=== PATIENT | male | born 1975 | race Caucasian/White ===

== ENCOUNTER 2016-11-13 16:53 | Emergency (ER) | payer SELFPAY ==
[~2016-11-13] VITALS: Ht 175.3 cm; Wt 79.0 kg
[~2016-11-13 16:53] MED LIST: HYDR2TAB PO; KLON2TAB PO; LISI10TA PO; METH5SOL3 PO
[2016-11-13 16:57] VITALS: BP 138/74; PULSE 84; RESP 18; TEMP 98.2; O2SAT 98
[2016-11-13] MEDS ORDERED: METH10TA PO (17:41)
[2016-11-13] MEDS ORDERED: LISI40TA PO (17:41)
[2016-11-13] MEDS ORDERED: HYDR8TAB PO (17:41)
[2016-11-13] MEDS ORDERED: DOXY100C PO (18:16)
[2016-11-13] MEDS ORDERED: BACT800T5 PO (18:16)
[2016-11-13] MEDS ORDERED: IBUP800T23 PO (18:16)
--- NOTE | 2016-11-13 18:17 | PD ---
HPI Chief Complaint: Skin Problem Time Seen by Provider: 18:12 Travel History International Travel<30 days: No Contact w/Intl Traveler<30days: No Traveled to known affect area: No History of Present Illness HPI 41-year-old male with history of axillary abscesses, presents to the emergency Department with complaint of bilateral axillary abscesses with worsening over the past few days. Denies fever, chills, nausea, vomiting. Has tried warm compresses to get them to open up with no success. No known relieving factors. Allergies to codeine, naproxen, penicillin. No other modifying factors or associated signs and symptoms. PFSH Past Medical History Arthritis: Yes Blood Disorders: No Anxiety: Yes Depression: Yes Heart Rhythm Problems: No Cancer: No Cardiac Catheterization: No Cardiovascular Problems: Yes High Cholesterol: No Chemotherapy: No Chest Pain: Yes Congestive Heart Failure: No Diabetes: No Diminished Hearing: Yes (LT EAR) Endocrine: No Gastrointestinal Disorders: No Genitourinary: No Headaches: Yes Hypertension: Yes (NON-COMPLIANT) Immune Disorder: No Musculoskeletal: Yes Neurologic: Yes Psychiatric: Yes Reproductive: No Respiratory: No Myocardial Infarction: Yes (2006 FROM COCAINE ABUSE) Radiation Therapy: No Tetanus Vaccination: < 5 Years Influenza Vaccination: No Past Surgical History Abdominal Surgery: Yes (APPENDECTOMY) AICD: No Appendectomy: Yes Arteriovenous Shunt: No Cardiac Surgery: No Coronary Artery Bypass Graft: No Ear Surgery: No Endocrine Surgery: No Eye Surgery: No Genitourinary Surgery: No Gynecologic Surgery: No Insulin Pump: No Joint Replacement: No Neurologic Surgery: No Oral Surgery: No Pacemaker: No Thoracic Surgery: No Other Surgery: Yes Family History Family Myocardial Infarction: No Social History Alcohol Use: No Tobacco Use: Yes (1PPD) Substance Use: Yes Allergies-Medications (Allergen,Severity, Reaction): Coded Allergies: Codeine (Verified Allergy, Severe, 11/13/16) Naproxen (Verified Allergy, Severe, Nausea/Vomiting, 11/13/16) Penicillin (Verified Allergy, Severe, HIVES, 11/13/16) Reported Meds & Prescriptions Reported Meds & Active Scripts Active Ibuprofen 800 Mg Tab 800 Mg PO Q6HR PRN Bactrim DS (Sulfamethoxazole-Trimethoprim) 800-160 Mg Tab 1 Tab PO BID 10 Days Doxycycline Hyclate 100 Mg Cap 100 Mg PO BID 10 Days Reported Hydromorphone (Hydromorphone HCl) 8 Mg Tab 8 Mg PO QID PRN Methadone (Methadone HCl) 10 Mg Tab 10 Mg PO BID Lisinopril 40 Mg Tab 40 Mg PO DAILY Review of Systems Except as stated in HPI: all other systems reviewed are Neg Physical Exam Narrative GENERAL: Well-nourished, well-developed patient, in no acute distress; afebrile , nontoxic-appearing SKIN: There is an indurated area in the left axilla which measures about 3 cm in diameter. It is fluctuant but there is no pointing or drainage. There is a zone of inflammation around it but no lymphangitis. There is an indurated area in the Right axilla which measures about 3 cm in diameter. It is fluctuant but there is no pointing or drainage. There is a zone of inflammation around it but no lymphangitis. HEAD: Atraumatic. Normocephalic. EYES: Pupils equal and round. No scleral icterus. No injection or drainage. ENT: Mucosa pink and moist. Airway patent. NECK: Trachea midline. CARDIOVASCULAR: Regular rate. RESPIRATORY: No accessory muscle use. GASTROINTESTINAL: Flat. MUSCULOSKELETAL: No obvious deformities. No clubbing. No cyanosis. No edema. NEUROLOGICAL: Awake and alert. Oriented 3. No obvious cranial nerve deficits. Motor grossly within normal limits. Normal speech. PSYCHIATRIC: Appropriate mood and affect; insight and judgment normal. Data Data Last Documented VS Vital Signs Date Time Temp Pulse Resp B/P Pulse Ox O2 Delivery O2 Flow Rate FiO2 11/13/16 16:57 98.2 84 18 138/74 98 Orders Wound Culture And Gram Stain (11/13/16 18:17) Lidocai-Epi 1%-1:100,000 Inj (Xylocaine- (11/13/16 18:45) MDM Medical Decision Making Medical Screen Exam Complete: Yes Emergency Medical Condition: Yes Medical Record Reviewed: Yes Differential Diagnosis Abscess, folliculitis, cellulitis Narrative Course 41-year-old male physical exam consistent with bilateral axilla abscesses. See Rosmery Mcdonough PA-C note for abscess incision and drainage. Wound culture pending. Patient is up-to-date on tetanus vaccination. She was afebrile nontoxic appearing. He denies fever, chills, nausea, vomiting. Doxycycline, Bactrim, ibuprofen prescribed for home. Patient is medically cleared and stable for discharge. Discussed reasons to return to the emergency department. Instructed patient to follow up with primary care provider. Patient agrees with treatment plan. The patients vital signs are stable and the patient is stable for outpatient follow-up and treatment. Patient discharged home, stable and in no acute distress. Diagnosis Primary Impression: Abscesses of both axillae Referrals: Primary Care Physician Patient Instructions: Abscess (ED), Abscess Follow-up (ED), Abscess Incision and Drainage (ED), General Instructions Departure Forms: Tests/Procedures, Work Release Enter return to work date: Nov 15, 2016 Additional Instructions: Complete full course of antibiotics Warm compresses to the affected area Keep area clean and dry Ibuprofen or Tylenol as instructed and as needed for pain and inflammation Follow-up with primary care provider Return to emergency department immediately with worsening of symptoms Med/Other Pt SpecificInfo: Prescription(s) given Scripts Ibuprofen 800 Mg [id number] Mg PO Q6HR PRN (PAIN) #30 TAB Ref 0 Prov:Elsy Loving 11/13/16 Sulfamethoxazole-Trimethoprim (Bactrim DS)800-160 Mg Tab1 Tab PO BID 10 Days Ref 0 Prov:Elsy Loving 11/13/16 Doxycycline Hyclate 100 Mg [id number] Mg PO BID 10 Days Ref 0 Prov:Elsy Loving 11/13/16 Disposition: 01 DISCHARGE HOME Condition: Stable Elsy Loving Nov 13, 2016 18:17
--- NOTE | 2016-11-13 18:44 | PD ---
HPI Chief Complaint: Skin Problem Time Seen by Provider: 18:41 Travel History International Travel<30 days: No Contact w/Intl Traveler<30days: No Traveled to known affect area: No History of Present Illness HPI 41-year-old male with PMH of HTN, distant [place] secondary to substance abuse presents to the ED for evaluation of 3 day history of reddened, swollen areas under bilateral axilla. Patient states he has never had a similar problem. He denies fever, chills, numbness, tingling, weakness or limitations to range of motion of bilateral upper extremities. No treatment attempt at home. He takes no daily medications. Endorses allergies to several medications. PFSH Past Medical History Arthritis: Yes Blood Disorders: No Anxiety: Yes Depression: Yes Heart Rhythm Problems: No Cancer: No Cardiac Catheterization: No Cardiovascular Problems: Yes High Cholesterol: No Chemotherapy: No Chest Pain: Yes Congestive Heart Failure: No Diabetes: No Diminished Hearing: Yes (LT EAR) Endocrine: No Gastrointestinal Disorders: No Genitourinary: No Headaches: Yes Hypertension: Yes (NON-COMPLIANT) Immune Disorder: No Musculoskeletal: Yes Neurologic: Yes Psychiatric: Yes Reproductive: No Respiratory: No Myocardial Infarction: Yes (2006 FROM COCAINE ABUSE) Radiation Therapy: No Tetanus Vaccination: < 5 Years Influenza Vaccination: No Past Surgical History Abdominal Surgery: Yes (APPENDECTOMY) AICD: No Appendectomy: Yes Arteriovenous Shunt: No Cardiac Surgery: No Coronary Artery Bypass Graft: No Ear Surgery: No Endocrine Surgery: No Eye Surgery: No Genitourinary Surgery: No Gynecologic Surgery: No Insulin Pump: No Joint Replacement: No Neurologic Surgery: No Oral Surgery: No Pacemaker: No Thoracic Surgery: No Other Surgery: Yes Family History Family Myocardial Infarction: No Social History Alcohol Use: No Tobacco Use: Yes (1PPD) Substance Use: Yes Allergies-Medications (Allergen,Severity, Reaction): Coded Allergies: Codeine (Verified Allergy, Severe, 11/13/16) Naproxen (Verified Allergy, Severe, Nausea/Vomiting, 11/13/16) Penicillin (Verified Allergy, Severe, HIVES, 11/13/16) Reported Meds & Prescriptions Reported Meds & Active Scripts Active Ibuprofen 800 Mg Tab 800 Mg PO Q6HR PRN Bactrim DS (Sulfamethoxazole-Trimethoprim) 800-160 Mg Tab 1 Tab PO BID 10 Days Doxycycline Hyclate 100 Mg Cap 100 Mg PO BID 10 Days Reported Hydromorphone (Hydromorphone HCl) 8 Mg Tab 8 Mg PO QID PRN Methadone (Methadone HCl) 10 Mg Tab 10 Mg PO BID Lisinopril 40 Mg Tab 40 Mg PO DAILY Review of Systems Except as stated in HPI: all other systems reviewed are Neg Physical Exam Narrative GENERAL: Well-nourished, well-developed white male in no acute distress. SKIN: Warm and dry. SKIN: There is an indurated area in the left axilla which measures about 4 cm in diameter. It is fluctuant but there is no pointing or drainage. There is a zone of inflammation around it but no lymphangitis. SKIN: There is an indurated area in the right axilla which measures about 3 cm in diameter. It is fluctuant but there is no pointing or drainage. There is a zone of inflammation around it but no lymphangitis. SKIN: There is an indurated area in the left anterior medial knee which measures about 3 cm in diameter. There is pointing and purulent drainage. There is a zone of inflammation around it but no lymphangitis. HEAD: Normocephalic. EYES: No scleral icterus. No injection or drainage. NECK: Supple, trachea midline. No JVD or lymphadenopathy. CARDIOVASCULAR: Regular rate and rhythm without murmurs, gallops, or rubs. RESPIRATORY: Breath sounds equal bilaterally. No accessory muscle use. GASTROINTESTINAL: Abdomen soft, non-tender, nondistended. MUSCULOSKELETAL: No cyanosis, or edema. BACK: Nontender without obvious deformity. No CVA tenderness. Data Data Last Documented VS Vital Signs Date Time Temp Pulse Resp B/P Pulse Ox O2 Delivery O2 Flow Rate FiO2 11/13/16 16:57 98.2 84 18 138/74 98 Orders Wound Culture And Gram Stain (11/13/16 18:17) Lidocai-Epi 1%-1:100,000 Inj (Xylocaine- (11/13/16 18:45) MDM Medical Decision Making Medical Screen Exam Complete: Yes Emergency Medical Condition: Yes Differential Diagnosis Folliculitis versus abscess versus cellulitis versus hidradenitis suppurativa versus other Narrative Course 41-year-old male with PMH of HTN, distant [place] secondary to substance abuse presents to the ED for evaluation of 3 day history of reddened, swollen areas under bilateral axilla. Patient states he has never had a similar problem. He denies fever, chills, numbness, tingling, weakness or limitations to range of motion of bilateral upper extremities. No treatment attempt at home. Vitals reviewed. Physical exam consistent with abscess. Abscess I&D was performed in each axilla. Please see my procedure note for details. He was advised to return to the ED for packing removal and wound recheck in 2 days. He was provided prescriptions for Bactrim, doxycycline and ibuprofen. He is instructed to take all medications as prescribed, even if symptoms resolve, follow up with the primary care provider. He indicated understanding of instructions and is amenable to plan of care. Patient is stable and discharged home. Procedures Procedure Narrative INCISION AND DRAINAGE OF ABSCESS: The area was prepped and was sterilely draped. A subcutaneous wheal of 1 % Xylocaine with epinephrine with a total number 6 mL was used to anesthetize the area properly. A number 11 scalpel was used to make a 1-cm incision across the area of the abscess. The abscess was drained, complex loculations were broken down, and irrigated with normal saline. Cultures were obtained. Quarter inch iodoform packing was placed in the wound. Sterile dressing applied. Patient advised to have packing removed in two days. INCISION AND DRAINAGE OF ABSCESS: The area was prepped and was sterilely draped. A subcutaneous wheal of 1 % Xylocaine with epinephrine with a total number 3 mL was used to anesthetize the area properly. A number 11 scalpel was used to make a 1-cm incision across the area of the abscess. The abscess was drained, complex loculations were broken down, and irrigated with normal saline. Quarter inch iodoform packing was placed in the wound. Sterile dressing applied. Patient advised to have packing removed in two days. Diagnosis Primary Impression: Abscesses of both axillae Referrals: Primary Care Physician Patient Instructions: General Instructions, Abscess Incision and Drainage (ED) , Abscess (ED), Abscess Follow-up (ED) Departure Forms: Work Release, Enter return to work date: Tests/Procedures Additional Instructions: Complete full course of antibiotics Warm compresses to the affected area Keep area clean and dry Ibuprofen or Tylenol as instructed and as needed for pain and inflammation Follow-up with primary care provider Return to emergency department immediately with worsening of symptoms Scripts Ibuprofen 800 Mg [id number] Mg PO Q6HR PRN (PAIN) #30 TAB Ref 0 Prov:Rassi,Elsy K COMMUNITY EDUCATION COORDINATOR 11/13/16 Sulfamethoxazole-Trimethoprim (Bactrim DS)800-160 Mg Tab1 Tab PO BID 10 Days Ref 0 Prov:YuElsy martinez 11/13/16 Doxycycline Hyclate 100 Mg [id number] Mg PO BID 10 Days Ref 0 Prov:FabienneElsy 11/13/16 Disposition: 01 DISCHARGE HOME Condition: Stable Marcela Mcdonough Nov 13, 2016 18:44
[2016-11-13] MEDS ORDERED: LIDOCAINE 1%/EPINEPHrine 1:100,000 SOLN 20 ML VIAL INFIL ONE (18:45)
== END 2016-11-13 19:59 | disposition home or self-care (01) ==
LOC: NEPB 16:53
DX: L02.412 Cutaneous abscess of left axilla (principal); L02.411 Cutaneous abscess of right axilla; B95.62 Methicillin resistant Staphylococcus aureus infection as the cause of diseases classified elsewhere; I10 Essential (primary) hypertension; I25.2 Old myocardial infarction; H91.92 Unspecified hearing loss, left ear; F17.200 Nicotine dependence, unspecified, uncomplicated; Z87.2 Personal history of diseases of the skin and subcutaneous tissue; Z87.39 Personal history of other diseases of the musculoskeletal system and connective tissue; Z86.59 Personal history of other mental and behavioral disorders; Z86.79 Personal history of other diseases of the circulatory system; Z86.69 Personal history of other diseases of the nervous system and sense organs
CPT/HCPCS: 10061; 86403; 87070; 87186; 87205